=== PATIENT | female | born 1985 | race Two or more races ===

== ENCOUNTER → 2024-11-29 | Outpatient (CLI) | payer OTHER, SELFPAY ==
[2024-11-29 08:57] LABS: Misc Send Out* See Sep Rpt
[2024-12-08 06:28] LABS: (tTG) Ab, IgA 7.6 U/mL; (tTG) Ab, IgG <1.0 U/mL; Gliadin(Deamidated)Ab,IgG 32.8 U/mL; IgA, Serum* 230 mg/dL (47-310); IgE, Serum* 30 kU/L (114 OR LESS)
== END | disposition home or self-care (01) ==
LOC: COPL 08:33
PROVIDERS: PCP Internal Medicine; Referring Provider Internal Medicine; Visit Provider Internal Medicine
DX: K30 Functional dyspepsia (principal); R19.7 Diarrhea, unspecified
CPT/HCPCS: 36415; 82784; 82785; 83036; 86231; 86258; 86364

== ENCOUNTER 2024-12-11 23:52 | Emergency (ER) | payer OTHER, SELFPAY ==
[2024-12-11 23:53] VITALS: BMI 25.8
[2024-12-12 00:09] VITALS: BP 144/85; PULSE 98; RESP 16; TEMP 37.7; O2SAT 96
--- NOTE | 2024-12-12 00:17 | EKG_ITS ---
[facility] (Formerly [facility]) Test Date: 2024-12-12 Pat Name: LEMUEL RHOADES Department: Room: - Gender: Female Compensation Expert: : 1985 Requested By: Antonio Jimenez ([facility]) Order Number: [id number] Reading MD: Antonio Jimenez ([facility]) Measurements Intervals [place] Rate: 96 P: 19 IN: 136 QRS: 58 QRSD: 101 T: 28 QT: 324 QTc: 410 Interpretive Statements SINUS RHYTHM No previous ECG available for comparison /store/S0/[id number]
--- NOTE | 2024-12-12 00:18 | PD.EDRME ---
Rapid Medical Screening Exam RME Arrival date/time: 12/11/24 23:52 39-year-old female past medical history thyroid disease presents emergency department complaining of cough, headache, joint pain, chest pain, and left arm intermittent numbness has been ongoing for 3 days. Chief Complaint: Chest Pain Time Seen by Provider: 12/11/24 23:57 Vital signs: Vital Signs Temperature 100 F 12/12/24 00:09 Pulse Rate 98 12/12/24 00:09 Respiratory Rate 16 12/12/24 00:09 Blood Pressure 144/85 H 12/12/24 00:09 Pulse Oximetry (%) 96 12/12/24 00:09 Oxygen Delivery Method Room Air 12/12/24 00:09 Vital signs reviewed by provider: Yes
--- NOTE | 2024-12-12 00:50 | PD.EDURI ---
Upper Respiratory Inf. RME/HPI General Chief Complaint: Chest Pain Stated Complaint: Chest Pain/Left arm Numbness x2hrs Time Seen by Provider: 12/11/24 23:57 Source: patient Arrival date/time: 12/11/24 23:52 39-year-old female past medical history thyroid disease presents emergency department complaining of cough, headache, joint pain, chest pain, and left arm intermittent numbness has been ongoing for 3 days. Mode of arrival: ambulatory Limitations: no limitations RME / HPI RME / HPI Narrative: 12/11/24 23:52 39-year-old female past medical history thyroid disease presents emergency department complaining of cough, headache, joint pain, chest pain, and left arm intermittent numbness has been ongoing for 3 days. Related Data Home Medications ?Medication ?Instructions ?Recorded ?Confirmed thyroid (pork) 60 mg tablet 60 mg PO QDAY 06/26/19 ([place] Thyroid) Previous Rx's ?Medication ?Instructions ?Recorded ibuprofen 600 mg tablet 600 mg PO Q8H PRN fever or pain 04/22/18 #30 tabs albuterol sulfate 90 mcg/actuation 2 puff inhalation Q6H PRN 06/26/19 aerosol inhaler shortness of breath or wheezing #18 grams acetaminophen 500 mg capsule 500 mg PO Q6H PRN pain #30 caps 12/12/24 ibuprofen 600 mg tablet 600 mg PO Q8H PRN pain #20 tabs 12/12/24 Allergies Allergy/AdvReac Type Severity Reaction Status Date / Time No Known Allergies Allergy Verified 06/26/19 14:31 Review of Systems Review of Systems Systems Reviewed: All systems reviewed, normal except as documented Constitutional Constitutional: Reports system reviewed and no additional complaints, except as documented, Reports body ache(s), Denies chills, Denies fever(s) and Reports headache(s) Eyes Eyes: Reports system reviewed and no additional complaints, except as documented and Denies change in vision ENT Ears, Nose, Mouth, and Throat: Reports system reviewed and no additional complaints, except as documented, Denies disequilibrium, Denies dizziness, Reports headache(s), Denies sore throat and Denies vertigo Cardiovascular Cardiovascular: Reports system reviewed and no additional complaints, except as documented, Reports chest pain and Denies dyspnea Respiratory Respiratory: Reports system reviewed and no additional complaints, except as documented, Denies chest congestion, Reports cough and Denies dyspnea Gastrointestinal Gastrointestinal: Reports system reviewed and no additional complaints, except as documented, Denies abdominal pain, Denies nausea and Denies vomiting Musculoskeletal Musculoskeletal: Reports system reviewed and no additional complaints, except as documented, Denies abnormal gait and Denies arthralgias Integumentary/Breasts Skin/Breast: Reports system reviewed and no additional complaints, except as documented, Denies erythema, Denies rash and Denies wounds Neurologic Neurologic: Reports system reviewed and no additional complaints, except as documented, Denies abnormal gait, Denies disequilibrium, Denies dizziness, Reports headache(s) and Denies vertigo Past Medical History Past Medical History CARDIAC: Negative Congestive Heart Failure RESPIRATORY: Positive Asthma; Negative Chronic Obstructive Pulmonary Disease (COPD) GENITOURINARY: Negative Renal Disease ENDOCRINE: Positive Endocrine Disorders and Hypothyroidism; Negative Diabetes Mellitus Type 1 or Diabetes Mellitus Type 2 Social History SMOKING STATUS: Never smoker ED Exam General Limitations: Present no limitations General appearance: Present alert and in no apparent distress Head Head exam: Present atraumatic Eye Eye exam: Present normal appearance, PERRL and EOMI ENT ENT exam: Present normal exam, normal oropharynx and mucous membranes moist Neck Neck exam: Present normal inspection, full ROM and trachea midline Chest Chest inspection: Present normal inspection and symmetric chest wall rise Respiratory Respiratory exam: Present normal lung sounds bilaterally Cardiovascular Cardiovascular exam: Present regular rate, normal rhythm and normal heart sounds Abdominal Exam Abdominal exam: Present soft and normal bowel sounds Extremities Exam Extremities exam: Present normal inspection and full ROM Back Exam Back exam: Present normal inspection and full ROM Neurological Exam Neurological exam: Present alert, oriented X3 and CN II-XII intact Psychiatric Psychiatric exam: Present normal affect and normal mood Skin Skin exam: Present warm, dry, intact and normal color Course Quality Measures none Orders Category Date Time Status Bedside Influenza A&B Antigen Test NOW Care 12/12/24 00:16 Completed EKG (ED ONLY) *Do not use* NOW Care 12/12/24 00:17 Completed EKG (ED Only) Stat Exams 12/12/24 00:17 Ordered Acetaminophen Tab [Tylenol ES Tab] Med 12/12/24 00:18 Discontinued 1,000 mg PO X1 ONE Vital Signs Vital signs: Vital Signs Temperature 100 F 12/12/24 00:09 Pulse Rate 98 12/12/24 00:09 Respiratory Rate 16 12/12/24 00:09 Blood Pressure 144/85 H 12/12/24 00:09 Pulse Oximetry (%) 96 12/12/24 00:09 Oxygen Delivery Method Room Air 12/12/24 00:09 96% room air within normal limits Procedures -ED EKG Interpretation #1: Date of EK12/12/24 Time of EK:23 Rate: 95 Interpretation: Interpreted by me EKG Impression: Normal sinus rhythm, No acute ST-T changes, No ectopy, No ischemic changes and Normal QRS Upper Respiratory Infection MDM Narrative MDM Narrative:: 39-year-old female past medical history thyroid disease presents emergency department complaining of cough, headache, joint pain, chest pain, and left arm intermittent numbness has been ongoing for 3 days. Patient appears nontoxic and is hemodynamically stable. No adventitious lung sounds on auscultation. EKG sinus rhythm. Influenza positive. Patient data External records reviewed:: [facility] previous records Clinical information provided by:: patient Social determinants that could affect healthcare access:: none Patient has the following chronic illnesses:: See chart How is presenting disease/condition affected by chronic disease/condition?: uneffected by Evaluation data The following diagnostics were reviewed and interpreted by me:: lab results and EKG tracing(s) Lab and/or radiology exams considered but not ordered:: Ordered Interpretation Summary: Interpreted by me Medications / Prescriptions Medications or Prescriptions considered but not ordered:: Ordered Medication administrations:: Medication Administration History Discontinued Medications Acetaminophen (Acetaminophen 500 Mg Tablet) 1,000 mg PO X1 ONE Stop: 12/12/24 00:19 Last Admin: 12/12/24 01:02 Dose: 1,000 mg Documented By: Given Consultations Consultation(s) initiated? (list below): No Diagnosis Upper Respiratory Differential Diagnosis: upper respiratory infection, otitis media, sinusitis, viral infection, bronchitis, influenza and pharyngitis Most likely diagnosis given after review of the tests above:: Influenza Admission Indicated Admission indicated?: not indicated Admission Request Was there a request for admission?: No Disposition Plan Disposition Plan: Discharge Discharge Attestation Discharge Attestation: The patient and all family members were given an opportunity to ask questions and understood the discharge instructions. Discharge instructions specifically effects, indications for sooner follow up or return to the emergency department, and the expected course of current diagnosis. Patient condition: Stable Discharge Plan Plan Patient Disposition: HOME (Self Care) Disposition Comment: Stable Prescriptions/Referrals Prescriptions/Med Rec: New ibuprofen 600 mg tablet 600 mg PO Q8H PRN (Reason: pain) Qty: 20 0RF acetaminophen 500 mg capsule 500 mg PO Q6H PRN (Reason: pain) Qty: 30 0RF No Action albuterol sulfate 90 mcg/actuation HFA aerosol inhaler 2 puff INH Q6H PRN (Reason: shortness of breath or wheezing) Qty: 18 0RF thyroid (pork) [Hughes Thyroid] 60 mg tablet 60 mg PO QDAY ibuprofen 600 mg tablet 600 mg PO Q8H PRN (Reason: fever or pain) Qty: 30 0RF Problem List Clinical Impression: Influenza Patient/Caregiver Discharge Instructions Education Materials: ED Influenza (Adult) Additional Instructions: Drink plenty of fluids and get plenty of rest. Take Tylenol or ibuprofen as needed for fever or pain. Follow-up with primary care provider in 2 to 3 days. Return to emergency department for any worsening symptoms or as needed. Print Language: Portuguese Stand Alone Forms: Sowmya Award Info., Work/School Release, Patient Portal Info Letter PA/REPAIR CLERK Supervising Physician PA/REPAIR CLERK Supervising Physician: Dr. Ibarra
[2024-12-12 01:02] VITALS: TEMP 37.7
[2024-12-12] MEDS: ACETAMINOPHEN 500 MG TABLET 1000 MG PO (01:02)
== END 2024-12-12 01:21 | disposition home or self-care (01) ==
LOC: SERX 12-12 01:08
PROVIDERS: Emergency Provider Emergency Medicine; PCP Internal Medicine; Referring Provider Emergency Medicine
DX: J11.1 Influenza due to unidentified influenza virus with other respiratory manifestations (principal)
CPT/HCPCS: 87400; 93005; 99283; A9270

== ENCOUNTER → 2025-01-25 | Outpatient (CLI) | payer OTHER, SELFPAY ==
--- NOTE | 2025-01-25 07:15 | XR_ITS ---
Examination: Abdomen sonogram, Limited Date and time of exam: January 25, 2025 0741 hrs. Indications: Upper abdominal pain after meals this month Technique: Real-time mchugh scale transabdominal sonographic images of the upper abdomen obtained. Findings: Normal gallbladder Normal common bile duct 0.3 cm Pancreas obscured by bowel gas Liver 11.5 cm fatty infiltration lobular contour no focal liver lesions Normal hepatopedal portal venous flow Patent IVC Impression: Normal gallbladder Normal common bile duct Fatty liver, suspect primary hepatocellular disease
== END | disposition home or self-care (01) ==
LOC: CDIM 07:12
PROVIDERS: PCP Internal Medicine; Referring Provider Specialist; Visit Provider Specialist
DX: K76.0 Fatty (change of) liver, not elsewhere classified (principal)
CPT/HCPCS: 76705

== ENCOUNTER 2025-06-19 19:53 | Emergency (ER) | payer OTHER, SELFPAY ==
[2025-06-19 19:53] VITALS: BMI 28.1
--- NOTE | 2025-06-19 20:09 | XR_ITS ---
Examination: Lumbar spine 3 views TECHNIQUE: AP lateral, lateral lower lumbar spine 3 views Date and time: June 19, 20252039 hours INDICATIONS: Onset lower back pain today. FINDINGS: Satisfactory alignment lumbar vertebral bodies Transitional L5 vertebral body No lumbar fracture No spondylolisthesis IMPRESSION: No lumbar fracture or significant arthritic change
[2025-06-19 20:10] VITALS: BP 124/80; PULSE 112; RESP 18; TEMP 37.6; O2SAT 98
[2025-06-19] MEDS: DEXAMETHASONE SOD PHOS INJ 10 MG/ML VIAL IM (20:19)
[2025-06-19] MEDS: KETOROLAC INJ 60 MG/2 ML VIAL IM (20:19)
[2025-06-19] MEDS: HYDROcodone/APAP 5/325 TABLET 1 TAB PO (20:19)
[2025-06-19 20:24] LABS: Collection Type, Urine Voided
[2025-06-19 20:35] LABS: HCG Qualitative,Urine Negative
[2025-06-19 20:38] LABS: Bacteria,Urine Rare; Bilirubin,Urine Negative (Negative); Blood,Urine 2+ (Negative); Clarity,Urine Clear (Clear/Hazy); Color,Urine Yellow (Lt Yel-Yel); Glucose, Urine Negative (Negative); Ketones,Urine Trace (Negative); Leukocyte Esterase,Urine Negative (Negative); Nitrite,Urine Negative (Negative); PH,Urine 6.0 (5.0-7.0); Protein,Urine Negative (Neg - Trace); RBC,Urine 11 /hpf (0-3); Specific Gravity,Urine 1.021 (1.001-1.035); Squamous Epithelial Cell,Urine 12 /hpf (0-5); Urobilinogen,Urine Negative mg/dL (0.0-1.0); WBC,Urine 1 /hpf (0-5)
--- NOTE | 2025-06-19 21:53 | PD.EDBACK ---
ED Back Injury Pain RME/HPI General Chief Complaint: Back Pain/Injury Stated Complaint: LOWER BACK PAIN, Time Seen by Provider: 06/19/25 20:00 Arrival date/time: 06/19/25 19:53 This is a case of a 39-year-old female with no medical history came in in the emergency room due to lower back pain for 2 days after gym workout patient denies any numbness weakness tingling sensation or incontinence to urine or stool persistence of the symptoms this patient decided to sought consult here in the emergency room Limitations: no limitations Related Data Home Medications ?Medication ?Instructions ?Recorded ?Confirmed thyroid (pork) 60 mg tablet 60 mg PO QDAY 06/26/19 ([place] Thyroid) Previous Rx's ?Medication ?Instructions ?Recorded ibuprofen 600 mg tablet 600 mg PO Q8H PRN fever or pain 04/22/18 #30 tabs albuterol sulfate 90 mcg/actuation 2 puff inhalation Q6H PRN 06/26/19 aerosol inhaler shortness of breath or wheezing #18 grams acetaminophen 500 mg capsule 500 mg PO Q6H PRN pain #30 caps 12/12/24 ibuprofen 600 mg tablet 600 mg PO Q8H PRN pain #20 tabs 12/12/24 cyclobenzaprine 10 mg tablet 10 mg PO BID PRN muscle spasm #10 06/19/25 tabs hydrocodone 5 mg-acetaminophen 325 1 tab PO Q6H PRN Severe pain #7 06/19/25 mg tablet tabs ibuprofen 800 mg tablet 800 mg PO Q8H PRN pain #20 tabs 06/19/25 lidocaine 5 % topical patch 1 patch topical QDAY PRN pain #15 06/19/25 (Lidoderm) ea Allergies Allergy/AdvReac Type Severity Reaction Status Date / Time No Known Allergies Allergy Verified 06/26/19 14:31 Review of Systems Review of Systems Systems Reviewed: All systems reviewed, normal except as documented Constitutional Constitutional: Reports system reviewed and no additional complaints, except as documented and Reports as per HPI ENT Ears, Nose, Mouth, and Throat: Denies neck pain Cardiovascular Cardiovascular: Reports system reviewed and no additional complaints, except as documented and Reports as per HPI Respiratory Respiratory: Reports system reviewed and no additional complaints, except as documented and Reports as per HPI Gastrointestinal Gastrointestinal: Reports system reviewed and no additional complaints, except as documented and Reports as per HPI Genitourinary Genitourinary: Reports system reviewed and no additional complaints, except as documented and Reports as per HPI Musculoskeletal Musculoskeletal: Reports system reviewed and no additional complaints, except as documented, Reports as per HPI, Denies abnormal gait, Denies arthralgias, Denies atrophy, Reports back pain, Denies deformity, Denies joint swelling, Denies limited range of motion, Denies loss of height, Denies muscle cramps, Denies muscle weakness, Denies myalgias, Denies neck pain, Denies numbness, Denies radiating pain into limb, Denies stiffness and Denies tingling Integumentary/Breasts Skin/Breast: Reports system reviewed and no additional complaints, except as documented and Reports as per HPI Neurologic Neurologic: Reports system reviewed and no additional complaints, except as documented, Reports as per HPI, Denies abnormal gait, Denies numbness and Denies tingling Past Medical History Past Medical History CARDIAC: Negative Congestive Heart Failure RESPIRATORY: Positive Asthma; Negative Chronic Obstructive Pulmonary Disease (COPD) GENITOURINARY: Negative Renal Disease ENDOCRINE: Positive Endocrine Disorders and Hypothyroidism; Negative Diabetes Mellitus Type 1 or Diabetes Mellitus Type 2 Social History SMOKING STATUS: Never smoker ED Exam General Limitations: Present no limitations General appearance: Present alert, in no apparent distress and other (Patient is awake alert oriented not in distress nontoxic looking) Head Head exam: Present atraumatic, normocephalic and normal inspection Eye Eye exam: Present normal appearance, PERRL and EOMI ENT ENT exam: Present normal exam, normal oropharynx and mucous membranes moist Neck Neck exam: Present normal inspection, full ROM and trachea midline; Absent tenderness, meningismus, lymphadenopathy or thyromegaly Chest Chest inspection: Present normal inspection and symmetric chest wall rise; Absent tenderness, rash or abscess Respiratory Respiratory exam: Present normal lung sounds bilaterally; Absent respiratory distress, wheezes, stridor, accessory muscle use or prolonged expiratory phase Cardiovascular Cardiovascular exam: Present regular rate, normal rhythm and normal heart sounds; Absent bradycardia, tachycardia, irregular rhythm, systolic murmur or diastolic murmur Abdominal Exam Abdominal exam: Present soft and normal bowel sounds; Absent distention, tenderness, guarding, rebound, rigidity, diminished bowel sounds, hyperactive bowel sounds or hypoactive bowel sounds Extremities Exam Extremities exam: Present normal inspection and full ROM Expanded Lower Extremity Exam Hip/Pelvis exam: Present other (Both lower extremities normal exam ROM intact neurovascular intact) Back Exam Back exam: Present normal inspection, full ROM, tenderness (Tenderness on the L1 L5 no paraspinal no paravertebral tenderness), muscle spasm and other (Steady gait); Absent CVA tenderness (R), CVA tenderness (L), paraspinal tenderness, vertebral tenderness, rashes, sciatic notch tenderness (R), sciatic notch tenderness (L), straight leg raise (R) or straight leg raise (L) Neurological Exam Neurological exam: Present alert, oriented X3, CN II-XII intact, normal gait and reflexes normal; Absent motor sensory deficit Psychiatric Psychiatric exam: Present normal affect and normal mood Skin Skin exam: Present warm, dry, intact and normal color Course Quality Measures none Orders Category Date Time Status XR lumbar spine 2-3V Stat Exams 06/19/25 20:09 Completed HCG Qualitative,Urine Stat Lab 06/19/25 20:17 Completed Urinalysis Stat Lab 06/19/25 20:17 Completed Dexamethasone Inj [Decadron Inj] Med 06/19/25 20:09 Discontinued 10 mg IM X1 ONE HYDROcodone*/APAP 5/325 [[place] 5/325] Med 06/19/25 20:09 Discontinued 1 tab PO X1 ONE Ketorolac Inj [Toradol Inj] Med 06/19/25 20:09 Discontinued 60 mg IM X1 ONE Morphine Inj Med 06/19/25 21:57 Once 4 mg IM X1 ONE Vital Signs Vital signs: Vital Signs Temperature 99.7 F 06/19/25 20:10 Pulse Rate 112 H 06/19/25 20:10 Respiratory Rate 18 06/19/25 20:10 Blood Pressure 124/80 06/19/25 20:10 Pulse Oximetry (%) 98 06/19/25 20:10 Oxygen Delivery Method Room Air 06/19/25 20:10 Patient is afebrile not tachycardic not tachypneic BP stable not hypoxic oxygen saturation is 98% after giving pain medication heart rate went down to 96 Back Pain / Injury MDM Narrative MDM Narrative:: This is a case of a 39-year-old female with no medical history came in in the emergency room due to lower back pain for 2 days after gym workout patient denies any numbness weakness tingling sensation or incontinence to urine or stool persistence of the symptoms this patient decided to sought consult here in the emergency room physical examination patient is awake alert oriented not in distress nontoxic looking lung sound is clear no crackles no rales no retraction no stridor abdominal exam is benign no guarding no rebound no rigidity no tenderness neck exam is normal both lower extremities were also normal back exam noted to mild to moderate tenderness on L1-L5 with mild muscle spasm no paraspinal no paravertebral tenderness straight leg exam is normal steady gait no CVA tenderness no cellulitis no red urinalysis is normal patient is not x-ray of the lumbar is also normal patient was given Toradol and [place] still with pain thus I gave morphine 4 mg IM here in the emergency room patient was also given dexamethasone for inflammation patient was advised to follow-up with PCP in 2 days for reevaluation and to be referred to neurosurgeon for possible MRI to ruled out herniated disc and pain management doctor for pain control at the time of exam no signs and symptoms of cauda equina no numbness no weakness no tingling sensation no incontinence to urine or stool worsening symptoms or any emergent concern she will return in the emergency room immediately or call 911 patient was prescribed with Motrin for mild to moderate pain and [place] for severe pain Flexeril for muscle relaxant and Lidoderm patch Patient was discharged with comfortable condition walking with stable gait. Patient verbalized no further complains explained diagnosis and answered patient question. Patient is comfortable with the proposed management plan including the need to follow up with his/her primary care physician and any specialist if applicable Discussed patient for any urgent condition or worsening sx, He/She needed to go to emergency room immediately or call 911. Patient acknowledge the responsibility to follow up as instructed and to monitor her/his symptoms. For any persistence of the symptoms for more than 3-5 days return precaution advised. Discussed the result of the test and was given printed discharge instruction Patient data External records reviewed:: [facility] previous records Clinical information provided by:: patient Social determinants that could affect healthcare access:: none Patient has the following chronic illnesses:: None How is presenting disease/condition affected by chronic disease/condition?: no chronic disease Evaluation data The following diagnostics were reviewed and interpreted by me:: lab results and radiology exam(s) Lab and/or radiology exams considered but not ordered:: Reviewed Interpretation Summary: Reviewed Medications / Prescriptions Medications or Prescriptions considered but not ordered:: Given Medication administrations:: Medication Administration History Morphine Sulfate (Morphine Sulf Inj 10 Mg/Ml Vial) 4 mg IM X1 ONE Stop: 06/19/25 21:58 Discontinued Medications Hydrocodone Bitart/Acetaminophen (Hydrocodone/Apap 5/325 Tablet) 1 tab PO X1 ONE Stop: 06/19/25 20:10 Last Admin: 06/19/25 20:19 Dose: 1 tab Documented By: OA Dexamethasone Sodium Phosphate (Dexamethasone Sod Phos Inj 10 Mg/Ml Vial) 10 mg IM X1 ONE Stop: 06/19/25 20:10 Last Admin: 06/19/25 20:19 Dose: 10 mg Documented By: OA Ketorolac Tromethamine (Ketorolac Inj 60 Mg/2 Ml Vial) 60 mg IM X1 ONE Stop: 06/19/25 20:10 Last Admin: 06/19/25 20:19 Dose: 60 mg Documented By: OA Given Consultations Consultation(s) initiated? (list below): No Diagnosis Differential diagnosis back pain/injury: sciatica and other (Herniated disc lumbar sprain lumbar strain back muscle spasm) Most likely diagnosis given after review of the tests above:: Back muscle spasm Admission Indicated Admission indicated?: not indicated Explain why admission is indicated or not indicated:: Not indicated Admission Request Was there a request for admission?: No Admission Attestation Admission request attestation: Not indicated Disposition Plan Disposition Plan: Discharge Discharge Attestation Discharge Attestation: The patient and all family members were given an opportunity to ask questions and understood the discharge instructions. Discharge instructions specifically effects, indications for sooner follow up or return to the emergency department, and the expected course of current diagnosis. Patient condition: Stable Discharge Plan Plan Patient Disposition: HOME (Self Care) Patient condition on transfer: Stable Prescriptions/Referrals Prescriptions/Med Rec: New ibuprofen 800 mg tablet 800 mg PO Q8H PRN (Reason: pain) Qty: 20 0RF cyclobenzaprine 10 mg tablet 10 mg PO BID PRN (Reason: muscle spasm) Qty: 10 0RF lidocaine [Lidoderm] 5 % adhesive patch,medicated 1 patch topical QDAY PRN (Reason: pain) Qty: 15 0RF Rx Instructions: leave on most painful area for up to 12 hrs hydrocodone-acetaminophen 5-325 mg tablet 1 tab PO Q6H MDD max 4 tabs per day PRN (Reason: Severe pain) Qty: 7 0RF No Action albuterol sulfate 90 mcg/actuation HFA aerosol inhaler 2 puff INH Q6H PRN (Reason: shortness of breath or wheezing) Qty: 18 0RF thyroid (pork) [[place] Thyroid] 60 mg tablet 60 mg PO QDAY ibuprofen 600 mg tablet 600 mg PO Q8H PRN (Reason: fever or pain) Qty: 30 0RF ibuprofen 600 mg tablet 600 mg PO Q8H PRN (Reason: pain) Qty: 20 0RF acetaminophen 500 mg capsule 500 mg PO Q6H PRN (Reason: pain) Qty: 30 0RF Referrals: [place] Castaneda MD [Primary Care Provider] - In 1 week Problem List Clinical Impression: Back muscle spasm Patient/Caregiver Discharge Instructions Education Materials: ED Back Spasm, No Trauma Additional Instructions: Follow-up with your primary care physician in 2 days for reevaluation worsening symptoms or any emergent concerns such as numbness weakness tingling sensation incontinence to urine or stool call 911 or go to the nearest emergency room take your medication as directed ice pack and warm compress as needed for pain no lifting no pulling no pushing more than 5 pounds is advised until cleared by your primary care physician if symptoms persist return to your primary care physician to be referred to neurosurgeon for MRI of your lower back to rule out herniated disc and pain management doctor for pain control Print Language: Occitan Stand Alone Forms: Sowmya Award Info., Patient Portal Info Letter PA/SAHARA Supervising Physician ZENON/SAHARA Supervising Physician: dr tillman
[2025-06-19] MEDS: MORPHINE SULF INJ 10 MG/ML VIAL 4 MG IM (22:16)
== END 2025-06-19 22:20 | disposition home or self-care (01) ==
PROVIDERS: Nurse Practitioner Family; Emergency Provider Emergency Medicine; PCP Internal Medicine
DX: M62.830 Muscle spasm of back (principal)
CPT/HCPCS: 72100; 81001; 81025; 96372; 99283; J1100; J1885; J2270; A9270

== ENCOUNTER → 2025-07-27 | Outpatient (CLI) | payer OTHER, SELFPAY ==
[2025-07-27 07:58] LABS: Collection Type, Urine Clean Catch
--- NOTE | 2025-07-27 08:00 | XR_ITS ---
Examination: MRI lumbar spine without contrast Date and time of exam: July 27, 2025, 0907 hours INDICATIONS: Low back pain radiating to both legs 4 months Technique: Multiple MRI axial and sagittal sections lumbar spine. Sagittal T2-weighted images, TR 3500, TE 118 T1 weighted transverse sections, TR 688 T8.5, T2-weighted sagittal sections T1 weighted sagittal sections TR 621, TE 30 T2 axial sections, TR 4, 190, TE 84. Findings: Transitional S1 vertebral bodies Disc desiccation L5-S1 Normal marrow signal lumbar vertebral bodies No spondylolisthesis L5-S1 3 mm central lumbar disc bulge More cephalad levels unremarkable IMPRESSION: No lumbar fracture L5-S1 3 mm central lumbar disc bulge
[2025-07-27 09:19] LABS: Ferritin 67 ng/mL (7.3-270.7)
[2025-07-27 09:20] LABS: Glucose Estimated Average 103 mg/dL (80-131); Hemoglobin A1C 5.2 % Hgb (4.8-6.0)
[2025-07-27 09:39] LABS: Bacteria,Urine Rare; Bilirubin,Urine Negative (Negative); Blood,Urine 1+ (Negative); Clarity,Urine Clear (Clear/Hazy); Color,Urine Lt-Yellow (Lt Yel-Yel); Glucose, Urine Negative (Negative); Ketones,Urine Negative (Negative); Leukocyte Esterase,Urine Negative (Negative); Nitrite,Urine Negative (Negative); PH,Urine 5.5 (5.0-7.0); Protein,Urine Negative (Neg - Trace); RBC,Urine 3 /hpf (0-3); Specific Gravity,Urine 1.024 (1.001-1.035); Squamous Epithelial Cell,Urine 15 /hpf (0-5); Urobilinogen,Urine Negative mg/dL (0.0-1.0); WBC,Urine 2 /hpf (0-5)
[2025-07-27 09:40] LABS: Alanine Aminotransferase 39 U/L (10-49); Albumin, Serum 4.5 gm/dL (3.5-5.0); Albumin/Globulin Ratio 2.0 (1.2-2.2); Alkaline Phosphatase 54 U/L (46-116); Anion Gap 11 (7-16); Aspartate Amino Transferase 26 U/L (0-34); BUN/Creatinine Ratio 14 Ratio (12-20); Bilirubin,Total 0.5 mg/dL (0.3-1.2); Blood Urea Nitrogen 13 mg/dL (9-23); Calcium 9.9 mg/dL (8.3-10.6); Calcium (Corrected) 9.9 mg/dL (8.5-10.1); Carbon Dioxide 25.1 mMol/L (20.0-31.0); Cardiac Risk Estimate 2.1 RATIO (3.7-5.6); Chloride 105 mMol/L (98-107); Cholesterol 150 mg/dL (132-200); Creatinine (Component) 0.9 mg/dL (0.6-1.3); Free T4 (Free Thyroxine) 1.44 ng/dL (0.89-1.76); Globulin 2.2 gm/dL (2.3-3.5); Glucose 94 mg/dL (74-106); HDL Cholesterol 70 mg/dL (40-60); LDL Cholesterol,Calculated 66 mg/dL (0-130); Osmolality,Calculated 281 (275-295); Potassium 4.2 mMol/L (3.4-5.1); Sodium 141 mMol/L (136-145); Thyroid Stimulating Hormone 3.32 uIU/mL (0.55-4.78); Total Protein 6.7 gm/dL (5.7-8.2); Triglycerides 70 mg/dL (30-150); eGFR > 60 See Note
[2025-07-27 09:49] LABS: Vitamin B12 699 pg/mL (211-911); Vitamin D 25 Hydroxy Total 32.4 ng/mL (7.3-40.2)
[2025-07-27 11:42] LABS: Basophils # (Auto) 0.0 Thou/mm3 (0.0-0.2); Basophils % (Auto) 1 % (0-2.5); Eosinophils # (Auto) 0.2 Thou/mm3 (0.0-0.5); Eosinophils % (Auto) 3 % (0-10); Hematocrit 38.9 % (36.0-46.0); Hemoglobin 13.2 g/dL (12.0-16.0); Immature Granulocytes Auto 0.01 Thou/mm3 (0.00-0.00); Lymphocytes # (Auto) 2.0 Thou/mm3 (1.0-4.8); Lymphocytes % (Auto) 36 % (10-50); Mean Corpuscular HGB Conc 33.9 g/dl (31.0-37.0); Mean Corpuscular Hemoglobin 30.3 pg (25.0-35.0); Mean Corpuscular Volume 89 fL (80-100); Monocytes # (Auto) 0.5 Thou/mm3 (0.0-0.8); Monocytes % (Auto) 9 % (0-12); Neutrophils # (Auto) 2.8 Thou/mm3 (1.8-7.7); Neutrophils % (Auto) 51 % (37-80); Nucleated Red Blood Cell # 0.00 Thou/mm3 (0.00-0.00); Nucleated Red Blood Cell % 0 /100 WBC (0); Platelet Count 259 Thou/mm3 (140-440); RDW Standard Deviation 42.7 fL (36.4-46.3); Red Blood Count 4.35 Miln/mm3 (4.00-5.20); White Blood Count 5.5 Thou/mm3 (3.6-11.0)
[2025-07-27 16:42] LABS: Uric Acid 3.9 mg/dL (3.1-7.8)
== END | disposition home or self-care (01) ==
LOC: SMRI 07:47 → SLAB 07:49
PROVIDERS: PCP Internal Medicine; Referring Provider Internal Medicine; Visit Provider Radiology Diagnostic Radiology
DX: M51.369 Other intervertebral disc degeneration, lumbar region without mention of lumbar back pain or lower extremity pain (principal); Z00.00 Encounter for general adult medical examination without abnormal findings; E03.9 Hypothyroidism, unspecified; N39.0 Urinary tract infection, site not specified; E55.9 Vitamin D deficiency, unspecified
CPT/HCPCS: 36415; 72148; 80053; 80061; 81001; 82306; 82607; 82728; 83036; 84439; 84443; 84550; 85025